=== PATIENT | female | born 1950 | race Caucasian/White ===

== ENCOUNTER → 2018-01-24 | Outpatient (CLI) | payer OTHER ==
[~2018-01-24] MED LIST: BENADRYL50 MG PO; FENOFIBRATE160 MG; GABAPENTIN300 MG; INTESTINEX680 MG PO; LANTUS SOLOSTAR3 ML; METFORMIN HCL850 MG; MIRALAX12 EA PO; NORTRIPTYLINE H50 MG; PREVACID30 MG; RISPERDAL2 MG PO; SEPTRA 80/400 T1 TAB PO; URETRON D/S TAB1 TAB PO; WELLBUTRIN XL150 MG PO; ZOLOFT100 MG PO
== END | disposition home or self-care (01) ==
LOC: TOM 07:15
DX: D12.5 Benign neoplasm of sigmoid colon (principal); D12.3 Benign neoplasm of transverse colon; R19.4 Change in bowel habit; K59.09 Other constipation; K44.9 Diaphragmatic hernia without obstruction or gangrene; K57.30 Diverticulosis of large intestine without perforation or abscess without bleeding; K30 Functional dyspepsia; K64.0 First degree hemorrhoids; K29.70 Gastritis, unspecified, without bleeding; K21.9 Gastro-esophageal reflux disease without esophagitis; R12 Heartburn; K20.8 Other esophagitis; Z86.010 Personal history of colon polyps; K62.1 Rectal polyp

== ENCOUNTER 2019-09-05 13:33 | Emergency (ER) | payer OTHER ==
[~2019-09-05] VITALS: Ht 152.4 cm; Wt 79.4 kg
[2019-09-05] MEDS ORDERED: TOPROL XL50 M1 (13:43)
[2019-09-05] MEDS ORDERED: VITAMINA D (13:44)
== END 2019-09-05 15:42 | disposition home or self-care (01) ==
LOC: ER 13:33
DX: K59.09 Other constipation (principal)

== ENCOUNTER 2020-12-26 13:42 | Inpatient (IN) | payer OTHER ==
[~2020-12-26] VITALS: Ht 152.4 cm; Wt 81.6 kg
[~2020-12-26 13:42] MED LIST changes: +TOPROL XL50 M1; +VITAMINA D
[2020-12-26] MEDS ORDERED: ATORVASTATIN CA20 MG PO (14:03)
[2020-12-26] MEDS ORDERED: GLIMEPIRIDE2 M1 PO (14:03)
[2020-12-26] MEDS ORDERED: LEVOTHYROXINE75 MCG PO (14:04)
[2020-12-26] MEDS ORDERED: METOPROLOL TART50 MG PO (14:04)
[2020-12-26] MEDS ORDERED: PANTOPRAZOLE SO40 MG PO (14:04)
[2020-12-26] MEDS ORDERED: METFORMIN HCL850 M1 PO (14:04)
[2020-12-26] MEDS ORDERED: RISPERIDONE1 MG PO (14:04)
[2020-12-26] MEDS ORDERED: SEMGLEE100 UNIT/1 SUBCUTANEO (14:05)
[2020-12-26] MEDS ORDERED: IRBESARTAN150 MG PO (14:05)
[2020-12-26] MEDS ORDERED: ESCITALOPRAM OXA5 MG PO (14:05)
[2020-12-27] MEDS ORDERED: VITAMIN D310 MC4 (16:22)
[2021-01-10] MEDS ORDERED: AMOX-CLAV 875-1 EACH PO (16:26)
== END 2021-01-10 18:53 | disposition home or self-care (01) | DRG 392 ==
LOC: ER 13:42 → SEC-K 12-27 12:27 → SURH 12-27 12:27
PROVIDERS: ADMIT Surgery; ATTEND Surgery
PROC: 0W9G30Z Drainage of Peritoneal Cavity with Drainage Device, Percutaneous Approach (ICD-10-PCS; principal; 2020-12-31)
PROC: 02HV33Z Insertion of Infusion Device into Superior Vena Cava, Percutaneous Approach (ICD-10-PCS; 2020-12-31)
DX: K57.20 Diverticulitis of large intestine with perforation and abscess without bleeding (principal); N17.8 Other acute kidney failure; E03.8 Other specified hypothyroidism; D64.9 Anemia, unspecified; E86.0 Dehydration; I13.10 Hypertensive heart and chronic kidney disease without heart failure, with stage 1 through stage 4 chronic kidney disease, or unspecified chronic kidney disease; N18.31 Chronic kidney disease, stage 3a; Z20.822 Contact with and (suspected) exposure to COVID-19; E11.65 Type 2 diabetes mellitus with hyperglycemia; Z79.4 Long term (current) use of insulin
CPT/HCPCS: 71275

== ENCOUNTER 2021-06-09 03:21 | Inpatient (IN) | payer OTHER ==
[~2021-06-09] VITALS: Ht 152.4 cm; Wt 81.6 kg
[~2021-06-09 03:21] MED LIST changes: +AMOX-CLAV 875-1 EACH PO; +ATORVASTATIN CA20 MG PO; +ESCITALOPRAM OXA5 MG PO; +GLIMEPIRIDE2 M1 PO; +IRBESARTAN150 MG PO; +LEVOTHYROXINE75 MCG PO; +METFORMIN HCL850 M1 PO; +METOPROLOL TART50 MG PO; +PANTOPRAZOLE SO40 MG PO; +RISPERIDONE1 MG PO; +SEMGLEE100 UNIT/1 SUBCUTANEO; +VITAMIN D310 MC4
--- NOTE | 2021-06-09 03:50 | NUR ---
SE RECIBE PTE ALERTA Y ORIENTADA POR PALMIRA. PTE REFIERE PRESENTAR DOLOR EN TODO EL ABDOMEN DESDE HACE 3 PETERSEN Y 2 EPISODIOS DE VOMITOS EN LA TARDE DE DARSHANA. PTE DE DR. TATYANA POWER.
--- NOTE | 2021-06-09 04:29 | NUR ---
EVALUA PTE. SE ORIENTA A PTE SOBRE ORDENES MEDICAS Y TRATAMIENTO. SE EXTRAEN MUESTRAS, SE CANALIZA PTE Y SE ADMINISTRAN MEDICAMENTOS BAJO MEDIDAS ASEPTICAS. SE LE ENTREGA A PTE U/A PARA COLECCION Y CONTRASTE PO PARA ESTUDIO PENDIENTE. SE COORDINA CT DE PTE/ PTE MANEJADO POR YKAYE.
--- NOTE | 2021-06-09 07:22 | NUR ---
PACIENTE FEMENINA, ALERTA Y ORIENTADA. ACOSTADA EN JUS, BARANDAS ELEVADAS POR SEGURIDAD. CANALIZADA EN BRAZO DERECHO, RECIBIENDO 0.9NS, PATENTE AL MOMENTO.SE LE ORIENTA SOBRE CONTINUIDAD DE TRATAMIENTO, REFIERE ENTENDER. PENDIENTE CT PO. SE MANTIENE BAJO OBSERVACION POR CAMBIOS.
[2021-06-25] MEDS ORDERED: AMOX-CLAV 875-1 EACH PO (16:00)
[2021-06-25] MEDS ORDERED: LEVSIN/SL0.125 MG SL (16:00)
== END 2021-06-25 17:34 | disposition home or self-care (01) | DRG 372 ==
LOC: ER 03:21 → SURG 15:38
PROVIDERS: ADMIT Surgery; ATTEND Surgery
PROC: BW21YZZ Computerized Tomography (CT Scan) of Abdomen and Pelvis using Other Contrast (ICD-10-PCS; 2021-06-09)
PROC: 4A12X4Z Monitoring of Cardiac Electrical Activity, External Approach (ICD-10-PCS; 2021-06-10)
PROC: 02HV33Z Insertion of Infusion Device into Superior Vena Cava, Percutaneous Approach (ICD-10-PCS; 2021-06-12)
PROC: BW21YZZ Computerized Tomography (CT Scan) of Abdomen and Pelvis using Other Contrast (ICD-10-PCS; 2021-06-15)
PROC: 0W9J30Z Drainage of Pelvic Cavity with Drainage Device, Percutaneous Approach (ICD-10-PCS; principal; 2021-06-18)
PROC: BW21YZZ Computerized Tomography (CT Scan) of Abdomen and Pelvis using Other Contrast (ICD-10-PCS; 2021-06-23)
DX: K35.33 Acute appendicitis with perforation, localized peritonitis, and gangrene, with abscess (principal); N17.8 Other acute kidney failure; N39.0 Urinary tract infection, site not specified; R18.8 Other ascites; R10.31 Right lower quadrant pain; E87.6 Hypokalemia; E86.0 Dehydration; D64.9 Anemia, unspecified; E03.8 Other specified hypothyroidism; E11.40 Type 2 diabetes mellitus with diabetic neuropathy, unspecified; Z79.4 Long term (current) use of insulin; I12.9 Hypertensive chronic kidney disease with stage 1 through stage 4 chronic kidney disease, or unspecified chronic kidney disease; E11.22 Type 2 diabetes mellitus with diabetic chronic kidney disease; N18.30 Chronic kidney disease, stage 3 unspecified; R00.0 Tachycardia, unspecified; Z20.822 Contact with and (suspected) exposure to COVID-19; B96.29 Other Escherichia coli [E. coli] as the cause of diseases classified elsewhere

== ENCOUNTER 2021-09-17 10:08 | Inpatient (IN) | payer OTHER ==
[~2021-09-17] VITALS: Ht 152.4 cm; Wt 81.6 kg
[~2021-09-17 10:08] MED LIST changes: +LEVSIN/SL0.125 MG SL
[2021-09-19] MEDS ORDERED: ATORVASTATIN CA20 MG (07:48)
[2021-09-19] MEDS ORDERED: GABAPENTIN300 M2 (07:48)
[2021-09-19] MEDS ORDERED: INSULIN SYRING (07:48)
[2021-09-24] MEDS ORDERED: PERCOCET 5-3251 EACH PO (13:50)
== END 2021-09-24 15:43 | disposition home or self-care (01) | DRG 331 ==
LOC: O/R 09-19 06:00 → SURH 09-19 06:00
PROVIDERS: ADMIT Surgery; ATTEND Surgery
PROC: 07BC4ZZ Excision of Pelvis Lymphatic, Percutaneous Endoscopic Approach (ICD-10-PCS; 2021-09-19)
PROC: 3E0F7SF Introduction of Other Gas into Respiratory Tract, Via Natural or Artificial Opening (ICD-10-PCS; 2021-09-19)
PROC: 0DTF4ZZ Resection of Right Large Intestine, Percutaneous Endoscopic Approach (ICD-10-PCS; principal; 2021-09-19 07:00)
PROC: 02HV33Z Insertion of Infusion Device into Superior Vena Cava, Percutaneous Approach (ICD-10-PCS; 2021-09-20)
PROC: 4A12X4Z Monitoring of Cardiac Electrical Activity, External Approach (ICD-10-PCS; 2021-09-23)
DX: K35.33 Acute appendicitis with perforation, localized peritonitis, and gangrene, with abscess (principal); D12.2 Benign neoplasm of ascending colon; K66.0 Peritoneal adhesions (postprocedural) (postinfection); R59.0 Localized enlarged lymph nodes; R00.0 Tachycardia, unspecified; K52.89 Other specified noninfective gastroenteritis and colitis